=== PATIENT | female | born 1965 | race Caucasian/White ===

== ENCOUNTER 2019-03-13 05:12 | Day surgery (SDC) | payer BC ==
[2019-03-09 17:33] VITALS: BMI 41.3
[2019-03-13] MEDS ORDERED: ACETAMINOPHEN 325 MG TABLET (FP) PO PRN (06:24)
[2019-03-13] MEDS ORDERED: IBUPROFEN 400 MG TABLET (FP) PO PRN (06:24)
--- NOTE | 2019-03-13 06:24 | HP ---
History & Physical Update - History History: No Change - Physical Physical: No Change - Assessment Assessment: No Change - Plan Plan: No Change (No change in HP for 03/09)
[2019-03-13] MEDS ORDERED: MIDAZOLAM HCL 2 MG/2 ML SINGLE DOSE VIAL ONE (07:50)
[2019-03-13] MEDS ORDERED: SUCCINYLCHOLINE CHLORIDE 200 MG/10 ML SYRINGE ONE (07:51)
[2019-03-13] MEDS ORDERED: PROPOFOL 20 ML ONE ×2 (07:51)
[2019-03-13] MEDS ORDERED: PROMETHAZINE HCL 25 MG/1 ML VIAL IVPUSH PRN (08:46)
[2019-03-13] MEDS ORDERED: oxyCODONE HCL 5 MG TABLET PO PRN (08:46)
[2019-03-13] MEDS ORDERED: ONDANSETRON 4 MG/2 ML VIAL IVPUSH PRN (08:46)
[2019-03-13] MEDS ORDERED: LACTATED RINGERS SOLUTION 1,000 ML IV SCH (09:00)
--- NOTE | 2019-03-13 10:19 | OP ---
DATE OF OPERATION: 03/13/2019 PREOPERATIVE DIAGNOSIS: Submucosal mucosa, endometrial polyps. OPERATION: Hysteroscopic myomectomy, suction dilation and curettage. POSTOPERATIVE DIAGNOSIS: Submucosal mucosa, endometrial polyps. SURGEON: Kay Ray MD ANESTHESIA: General. DESCRIPTION OF PROCEDURE: Patient was taken to the operating room and placed in dorsal lithotomy position, prepped and draped in the usual sterile fashion. Time-out was performed in accordance with hospital regulation. Speculum was placed in the vagina. Anterior lip of the cervix was grasped with a single-tooth tenaculum. Cervix then dilated to accommodate the operative hysteroscope. Operative hysteroscope was inserted, and endometrial submucosal myoma was seen in the anterior aspect of the uterus. Cautery and cutting of the myoma was done. Specimen submitted to Pathology. Suction dilation and curettage was done. All instruments were then removed. Patient tolerated the procedure well and was taken to the recovery room in stable condition. Estimated blood loss 20 mL. Esau [id number]
--- NOTE | 2019-03-13 10:56 | OP ---
Operative Note - Note: Operative Date: 03/13/19 Pre-Operative Diagnosis: endometrial polyps Operation: Hysteroscopic myomectomy. Suction DC Findings: submucosal myoma Post-Operative Diagnosis: Same as Pre-op Surgeon: Kay Ray Anesthesia: General Estimated Blood Loss (mls): 20 Operative Report Dictated: Yes
[2019-03-13 12:02] VITALS: BP 130/77; PULSE 80; TEMP 97
--- NOTE | 2019-03-14 13:57 | PATH ---
Surgical Pathology Report Patient Name: VILMA AREVALO [facility]. Rec. #: [id number] /Age/Gender: 1965 (Age: 53) / F Account: [id number] Location: [facility] Taken: 03/13/2019 Received: 03/13/2019 Reported: 03/14/2019 Physicians: Kay Ray M.D. Specimen(s) Received A: MYOMA B: ENDOMETRIAL CURETTINGS/ MYOMA Clinical History Endometrial polyp Final Diagnosis A. MYOMA, HYSTEROSCOPIC MYOMECTOMY: <1 G, FRAGMENTS OF FIBROMUSCULAR TISSUE CONSISTENT WITH SUBMUCOSAL LEIOMYOMA AND PROLIFERATIVE ENDOMETRIUM. B. ENDOMETRIAL CURETTINGS/MYOMA, SUCTION DILATION AND CURETTAGE: FRAGMENTS OF FIBROMUSCULAR TISSUE CONSISTENT WITH SUBMUCOSAL LEIOMYOMA, PROLIFERATIVE ENDOMETRIUM, AND BENIGN CERVICAL TISSUE. Electronically Signed Katlyn Lopez M.D. Gross Description A. Received in formalin labeled "myoma," is a less than 1 g, 1.0 x 0.7 x 0.1 cm aggregate of caceres, rubbery tissue fragments, consistent with morcellated myoma. The specimen is entirely submitted in one cassette. B. Received in formalin labeled "endometrial curettings/myoma," is a 1.5 x 1.1 x 0.2 cm aggregate of caceres soft tissue fragments. The formalin is filtered and the specimen is entirely submitted in one cassette. DL/03/13/2019 saudi03/13/2019
== END 2019-03-13 12:02 | disposition home or self-care (01) ==
LOC: JASU-SURG 05:12
PROVIDERS: ATTEND Obstetrics & Gynecology
PROC: 0UJD8ZZ Inspection of Uterus and Cervix, Via Natural or Artificial Opening Endoscopic (ICD-10-PCS; 2019-03-13)
PROC: 0UB98ZZ Excision of Uterus, Via Natural or Artificial Opening Endoscopic (ICD-10-PCS; principal; 2019-03-13 08:00)
PROC: 0UDB7ZX Extraction of Endometrium, Via Natural or Artificial Opening, Diagnostic (ICD-10-PCS; 2019-03-13 08:00)
DX: D25.0 Submucous leiomyoma of uterus (principal); N84.0 Polyp of corpus uteri; I10 Essential (primary) hypertension; E66.01 Morbid (severe) obesity due to excess calories
CPT/HCPCS: 36415; 84702; 86850; 86900; 86901; 88305-TC; 94760